=== PATIENT | male | born 1990 | race Caucasian/White ===

== ENCOUNTER 2016-08-13 08:47 | Day surgery (SDC) | payer OTHER ==
[2016-08-13] MEDS ORDERED: Lidocaine Topical 2% 30 mL Jelly ONE (09:20)
== END 2016-08-13 23:59 | disposition home or self-care (01) ==
LOC: END 08:47
PROVIDERS: ATTEND Internal Medicine Gastroenterology
DX: R13.10 Dysphagia, unspecified (principal)